=== PATIENT | female | born 1990 | race Caucasian/White ===

== ENCOUNTER 2020-06-05 00:29 | Emergency (ER) | payer OTHER ==
[2020-06-05] MEDS ORDERED: ONDANSETRON 4 MG/2 ML VIAL ONE (01:03)
[2020-06-05] MEDS ORDERED: MORPHINE 4 MG/ML SYR ONE (01:03)
[2020-06-05 01:31] LABS: Urine Blood 2+ (NEG); Urine Glucose NEGATIVE (NEG); Urine Protein TRACE (NEG); Urine Specific Gravity >1.030 (1.005-1.030)
[2020-06-05 01:39] LABS: Absolute Lymphocytes (CBC) 5.2 K/uL (0.7-4.9); Basophils % 0.5 % (0-1.3); Hematocrit 37.9 % (36.0-45.0); Lymphocytes % 51.9 % (15.3-44.8); MPV 9.1 fL (7.6-11.3)
[2020-06-05 01:57] LABS: ALT/SGPT 43 U/L (12-78); AST/SGOT 25 U/L (15-37); Albumin 3.7 g/dL (3.4-5.0); Alkaline Phosphatase 46 U/L (45-117); BUN Blood Urea Nitrogen 11 mg/dL (7-18); Bicarbonate 24 mmol/L (21-32); Bilirubin Direct < 0.1 mg/dL (0-0.2); Bilirubin Total 0.3 mg/dL (0.2-1.0); Glucose Level 119 mg/dL (74-106); Lipase 89 U/L (73-393); Potassium 3.7 mmol/L (3.5-5.1); Protein, Total 7.7 g/dL (6.4-8.2); Sodium Level 142 mmol/L (136-145)
--- NOTE | 2020-06-05 02:30 | EDPHYS ---
Physician Documentation [facility] Name: Kathryn Lainez Age: 29 yrs Sex: Female : 1990 Arrival Date: 06/05/2020 Time: 00:31 Bed 8 Private MD: ED Physician Nghia Hannah HPI: 06/05 01:00 This 29 yrs old Female presents to ER via Wheelchair with complaints of m Abdominal Pain. 01:00 The patient presents with abdominal pain in the right upper quadrant, right lower jmm quadrant. Onset: The symptoms/episode began/occurred acutely, 3 hour(s) ago. The symptoms do not radiate. Associated signs and symptoms: Pertinent positives: nausea, Pertinent negatives: diarrhea, dysuria, fever, vomiting. The symptoms are described as achy, sharp. Modifying factors: The symptoms are alleviated by nothing, the symptoms are aggravated by nothing. This is a 29 year old female with no chronic medical conditions that presents to the ED with complaints of right sided abdominal pain beginning approx 3 hours. Pain was acute onset. Denies vomiting or diarrhea. . 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 - Social history:: Smoking status: Patient reports the use of cigarette tobacco products, smokes one pack cigarettes per day. ROS: 01:00 Constitutional: Negative for fever, chills, and weight loss, Cardiovascular: Negative jmm for chest pain, palpitations, and edema, Respiratory: Negative for shortness of breath, cough, wheezing, and pleuritic chest pain. 01:00 Abdomen/GI: Positive for abdominal pain, nausea. 01:00 All other systems are negative. Exam: 01:00 Constitutional: This is a well developed, well nourished patient who is awake, alert, jmm and in no acute distress. Head/Face: atraumatic. Eyes: EOMI, no conjunctival erythema appreciated ENT: Moist Mucus Membranes Neck: Trachea midline, Supple Chest/axilla: Normal chest wall appearance and motion. Cardiovascular: Regular rate and rhythm. No edema appreciated Respiratory: Normal respirations, no respiratory distress appreciated 01:00 Back: Normal ROM Skin: General appearance color normal MS/ Extremity: Moves all extremities, no obvious deformities appreciated, no edema noted to the lower extremities Neuro: Awake and alert, normal gait Psych: Behavior is normal, Mood is normal, Patient is cooperative and pleasant 01:00 Abdomen/GI: Inspection: abdomen appears normal, Bowel sounds: normal, Palpation: soft, moderate abdominal tenderness, in the right upper quadrant and right lower quadrant. Vital Signs: 00:55 BP 151 / 97; Pulse 72; Resp 16; Temp 98.4(O); Pulse Ox 100% on R/A; Weight 58.97 kg lp1 (R); Height 5 ft. 4 in. (162.56 cm); Pain 8/10; 01:55 BP 107 / 54; Pulse 59; Resp 18; Pulse Ox 99% ; ea 02:31 BP 102 / 64; Pulse 60; Resp 18; Pulse Ox 98% on R/A; ea 00:55 Body Mass Index 22.31 (58.97 kg, 162.56 cm) lp1 MDM: 00:42 Patient medically screened. [facility] 02:27 Data reviewed: vital signs, nurses notes. Counseling: I had a detailed discussion with irving the patient and/or guardian regarding: the historical points, exam findings, and any diagnostic results supporting the discharge/admit diagnosis, lab results, radiology results, the need for outpatient follow up, to return to the emergency department if symptoms worsen or persist or if there are any questions or concerns that arise at home. ED course: Pain is relieved in the ED. Patient is advised to follow up with urology for reevaluation. Patient is otherwise given strict return precautions. patient understood and agrees with the plan of care. . 06/05 00:54 Order name: Basic Metabolic Panel; Complete Time: 02:00 [facility] 06/05 00:54 Order name: CBC with Diff; Complete Time: :46 [facility] 06/05 00:54 Order name: Hepatic Function; Complete Time: 02:00 [facility] 06/05 00:54 Order name: Lipase; Complete Time: 02:00 [facility] 06/05 01:25 Order name: Urine Dipstick--Ancillary (enter results); Complete Time: 01:46 [facility] 06/05 00:54 Order name: IV Saline Lock; Complete Time: 00:58 [facility] 06/05 00:54 Order name: Labs collected and sent; Complete Time: 00:58 [facility] 06/05 00:54 Order name: CT Abd/Pelvis - IV Contrast Only [facility] 06/05 01:25 Order name: Urine --Ancillary (enter results); Complete Time: 01:46 mw2 06/05 01:26 Order name: CREATININE WHOLE BLOOD [facility] 06/05 00:54 Order name: Urine Dipstick-Ancillary (obtain specimen); Complete Time: 01:19 [facility] 06/05 00:54 Order name: Urine Test (obtain specimen); Complete Time: 01:19 [facility] Administered Medications: 00:57 Drug: morphine 4 mg Route: IVP; Site: right antecubital; mg2 01:38 Follow up: Response: No adverse reaction; Pain is decreased ea 00:57 Drug: Zofran (Ondansetron) 4 mg Route: IVP; Site: right antecubital; mg2 01:38 Follow up: Response: No adverse reaction; Pain is decreased ea Disposition: 04:45 Co-signature as Attending Physician, Nghia Hannah MD. kika Disposition: 06/05/20 02:28 Discharged to Home. Impression: Calculus of kidney and ureter. - Condition is Stable. - Discharge Instructions: Kidney Stones, Dietary Guidelines to Help Prevent Kidney Stones. - Prescriptions for Zofran ODT 4 mg Oral tablet,disintegrating - place 1 tablet by TRANSLINGUAL route every 4-6 hours; 20 tablet. Cephalexin 500 mg Oral Capsule - take 1 capsule by ORAL route every 12 hours for 10 days; 20 capsule. - Medication Reconciliation Form, Thank You Letter, Antibiotic Education, Prescription Opioid Use form. - Follow up: Private Physician; When: 2 - 3 days; Reason: Recheck today's complaints, Continuance of care, Re-evaluation by your physician. Follow up: Dileep Alcantar MD; When: 2 - 3 days; Reason: Recheck today's complaints, Continuance of care, Re-evaluation by your physician. Signatures: Dispatcher [employer] EDMS Nghia Hannah MD MD pkl Mickail, Joel, PA PA [facility] Beryl Grady RN RN lp1 Megan Quinteros RN CARLY ea Damian Huitron RN RN mg2 Corrections: (The following items were deleted from the chart) 01:41 01:19 Stone Protocol+CT.RAD.BRZ ordered. [facility] EDMS 02:42 02:28 06/05/2020 02:28 Discharged to Home. Impression: Calculus of kidney and ureter. ea Condition is Stable. Forms are Medication Reconciliation Form, Thank You Letter, Antibiotic Education, Prescription Opioid Use. Follow up: Private Physician; When: 2 - 3 days; Reason: Recheck today's complaints, Continuance of care, Re-evaluation by your physician. Follow up: Dileep Alcantar; When: 2 - 3 days; Reason: Recheck today's complaints, Continuance of care, Re-evaluation by your physician. irving
--- NOTE | 2020-06-05 02:30 | ER ---
Nurse's Notes [facility] Name: Kathryn Lainez Age: 29 yrs Sex: Female : 1990 Arrival Date: 06/05/2020 Time: 00:31 Bed 8 Private MD: Diagnosis: Calculus of kidney and ureter Presentation: 06/05 00:55 Chief complaint: Patient states: Sudden onset of right sided abdominal pain that began lp1 about 3 hours ago; Denies vomiting, fever. Coronavirus screen: Proceed with normal triage. Ebola Screen: No symptoms or risks identified at this time. Initial Sepsis Screen: Does the patient meet any 2 criteria? No. Patient's initial sepsis screen is negative. Does the patient have a suspected source of infection? No. Patient's initial sepsis screen is negative. Risk Assessment: Do you want to hurt yourself or someone else? Patient reports no desire to harm self or others. Onset of symptoms was June 05, 2020. 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 - Social history:: Smoking status: Patient reports the use of cigarette tobacco products, smokes one pack cigarettes per day. Screenin:59 Abuse screen: Denies threats or abuse. Nutritional screening: No deficits noted. ea Tuberculosis screening: No symptoms or risk factors identified. Fall Risk IV access (20 points). Assessment: 01:00 General: Appears uncomfortable, Behavior is restless. Pain: Complains of pain in right ea lower quadrant. Neuro: Level of Consciousness is awake, alert, obeys commands, Oriented to person, place, time. Cardiovascular: Patient's skin is warm and dry. Respiratory: Airway is patent Respiratory effort is even, unlabored, Respiratory pattern is regular, symmetrical. GI: Abdomen is flat, Abdomen is tender to palpation in right lower quadrant. Derm: Skin is clammy, Skin is pale, Skin temperature is warm. 01:37 Reassessment: Patient and/or family updated on plan of care and expected duration. Pain ea level reassessed. Patient is alert, oriented x 3, equal unlabored respirations, skin warm/dry/pink. Reports pain has decreased. 02:41 Reassessment: Patient and/or family updated on plan of care and expected duration. Pain ea level reassessed. Patient is alert, oriented x 3, equal unlabored respirations, skin warm/dry/pink. Discharge instruction given to patient, verbalized the understanding of instruction. Pt left ED ambulatory tolerating well. Vital Signs: 00:55 BP 151 / 97; Pulse 72; Resp 16; Temp 98.4(O); Pulse Ox 100% on R/A; Weight 58.97 kg lp1 (R); Height 5 ft. 4 in. (162.56 cm); Pain 8/10; 01:55 BP 107 / 54; Pulse 59; Resp 18; Pulse Ox 99% ; ea 02:31 BP 102 / 64; Pulse 60; Resp 18; Pulse Ox 98% on R/A; ea 00:55 Body Mass Index 22.31 (58.97 kg, 162.56 cm) lp1 ED Course: 00:31 Patient arrived in ED. cf2 00:42 Rex Zepeda PA is PHCP. jmm 00:42 Nghia Hannah MD is Attending Physician. jmm 00:54 Megan Quinteros, CARLY is Primary Nurse. ea 00:56 Triage completed. lp1 00:57 Arm band placed on. lp1 01:00 Patient has correct armband on for positive identification. Placed in gown. Bed in low ea position. Call light in reach. 01:40 CT Abd/Pelvis - IV Contrast Only In Process Unspecified. EDMS 02:28 Dileep Alcantar MD is Referral Physician. jmm 02:32 No provider procedures requiring assistance completed. ea 02:41 IV discontinued, intact, bleeding controlled, No redness/swelling at site. Pressure ea dressing applied. Administered Medications: 00:57 Drug: morphine 4 mg Route: IVP; Site: right antecubital; mg2 01:38 Follow up: Response: No adverse reaction; Pain is decreased ea 00:57 Drug: Zofran (Ondansetron) 4 mg Route: IVP; Site: right antecubital; mg2 01:38 Follow up: Response: No adverse reaction; Pain is decreased gustavo Outcome: 02:28 Discharge ordered by MD. villatoro 02:41 Discharged to home ambulatory, with family. gustavo 02:41 Condition: stable 02:41 Discharge instructions given to patient, Instructed on discharge instructions, follow up and referral plans. medication usage, Demonstrated understanding of instructions, follow-up care, medications, Prescriptions given X 2. 02:42 Patient left the ED. ea Signatures: Dispatcher [employer] EDMS Rex Zepeda PA PA jmm Pena, Laura, RN RN lp1 Megan Quinteros RN RN Damian Serna RN RN [facility] 2
--- NOTE | 2020-06-05 13:27 | RAD REPORT ---
EXAM DESCRIPTION: CT ABDOMEN AND PELVIS WITH CONTRAST CLINICAL HISTORY: Right sided abdominal pain COMPARISON: None Available. TECHNIQUE: CT of the abdomen and pelvis performed following IV administration of iodinated contras t.. FINDINGS: Lung Bases: The visualized lung bases are clear. Bones: No destructive bone lesions identified. Abdomen: Liver: The liver has normal size and density. No intrahepatic biliary dilatation. Gallbladder: No calcified gallstones. Spleen, Pancreas, and Adrenal Glands: The spleen, pancreas, and adrenal glands are unremarkable. Kidneys: Moderate right hydroureter and hydronephrosis. No obstructing bilateral nephrolithiasis. N o ureteral calculi. No left-sided hydronephrosis. Vasculature: The aorta and IVC have normal caliber and position. The portal vein is patent. The pro ximal visceral and renal arteries are patent. Stomach: The stomach and duodenum have normal course. Other: No free intraperitoneal air. No free fluid or lymphadenopathy. Pelvis: Bladder: There is a 0.3 cm calculus in the urinary bladder. Bowel: No dilated loops of large or small bowel. Appendix: Normal appendix. Pelvis: Mildly prominent bilateral pelvic veins could be seen with pelvic congestion syndrome. Uterus is not enlarged. IMPRESSION: 1. Recently passed 0.3 cm calculus layering in the urinary bladder with residual moderat e right hydroureter and hydronephrosis. 2. Bilateral nonobstructing nephrolithiasis. This exam was performed according to our departmental dose-optimization program, which includes autom ated exposure control, adjustment of the mA and/or kV according to patient size and/or use of iterati ve reconstruction technique. Electronically signed by: Edi Urrutia 06/05/2020 2:17 AM CDT Due to temporary technical issues with the PACS/Fluency reporting system, reports are being signed by the in house radiologist without review as a courtesy to ensure prompt reporting. The interpreting r adiologist is fully responsible for the content of the report.
[2020-06-05 17:36] VITALS: TEMP 98.4
[2020-06-05 17:39] VITALS: BP 102/64; O2SAT 98
== END 2020-06-05 02:42 | disposition home or self-care (01) ==
LOC: ER 00:29
DX: N20.2 Calculus of kidney with calculus of ureter (principal); F17.210 Nicotine dependence, cigarettes, uncomplicated
CPT/HCPCS: 85025; 80048; 36415; 81025; 82565; 80076; 81003; 83690; 74177; 96375; 96374; 99283; Q9967; J2405

== ENCOUNTER 2020-07-20 07:23 | Emergency (ER) | payer OTHER ==
[2020-07-20] MEDS ORDERED: KETOROLAC 30 MG/ML INJ ONE (07:51)
[2020-07-20] MEDS ORDERED: NA CHLORIDE 0.9% 1,000 ML ONE (07:52)
[2020-07-20 07:58] LABS: Basophils % 0.3 % (0-1.3); Hematocrit 39.8 % (36.0-45.0); Lymphocytes % 25.8 % (15.3-44.8); RBC Red Blood Cell Count 4.52 M/uL (3.86-4.86)
[2020-07-20 08:05] LABS: Potassium 3.7 mmol/L (3.5-5.1)
[2020-07-20] MEDS ORDERED: PROMETHAZINE INJ 25 MG/ML AMP ONE (08:08)
[2020-07-20 08:10] LABS: Urine Blood 2+ (NEG); Urine Glucose NEGATIVE (NEG); Urine Protein NEGATIVE (NEG); Urine pH 5.5 (5.0-7.0)
[2020-07-20 08:12] LABS: Urine Bacteria >50 /HPF (<20); Urine Culture Reflex Order NOT NEEDED
[2020-07-20] MEDS ORDERED: MORPHINE 2 MG/ML SYR ONE (08:42)
[2020-07-20] MEDS ORDERED: CEFTRIAXONE/SWI 1gm 1 GM/10 ML SYR ONE (08:42)
--- NOTE | 2020-07-20 08:42 | RAD REPORT ---
EXAM DESCRIPTION: CT - Stone Protocol - 07/20/2020 8:23 am CLINICAL HISTORY: Flank pain. ABD PAIN COMPARISON: Abdomen Pelvis W Contrast dated 06/05/2020 TECHNIQUE: Axial images were obtained without oral or IV contrast. Lack of contrast limits solid org an and vascular assessment. The [id number] spans the entirety of the system partially obscuring uppermost abdomen and lung bases. Coronal reformatted images were obtained and reviewed. All CT scans are performed using dose optimization technique as appropriate and may include automated exposure control or mA/KV adjustment according to patient size. FINDINGS: The lower lung dorantes are clear. Imaged portions of the liver and spleen show no suspicious findings on non-contrast imaging. The panc reas and adrenal glands are normal. No pathologic lymphadenopathy in the abdomen or pelvis. 6 mm stone (640 HU) is present in the right UVJ resulting moderate right hydronephrosis. Additional b ilateral punctate caliceal calculi. No bowel obstruction, free air, free fluid or abscess. Normal appendix noted. No significant bony abnormality. IMPRESSION: 6 mm stone right UVJ resulting in moderate right hydronephrosis. Additional bilateral punctate caliceal renal calculi.
--- NOTE | 2020-07-20 09:10 | ER ---
Nurse's Notes [facility] Name: Kathryn Lainez Age: 29 yrs Sex: Female : 1990 Arrival Date: 07/20/2020 Time: 07:26 Bed 14 Private MD: Diagnosis: Hydronephrosis with renal and ureteral calculous obstruction;Urinary tract infection, site not specified Presentation: 07/20 07:30 Chief complaint: Patient states: right flank pain since last night, feels like a kidney iw stone. Coronavirus screen: At this time, the client does not indicate any symptoms associated with coronavirus-19. Ebola Screen: Patient negative for fever greater than or equal to 101.5 degrees Fahrenheit, and additional compatible Ebola Virus Disease symptoms Patient denies exposure to infectious person. Patient denies travel to an Ebola-affected area in the 21 days before illness onset. No symptoms or risks identified at this time. Initial Sepsis Screen: Does the patient meet any 2 criteria? No. Patient's initial sepsis screen is negative. Does the patient have a suspected source of infection? No. Patient's initial sepsis screen is negative. Risk Assessment: Do you want to hurt yourself or someone else? Patient reports no desire to harm self or others. Onset of symptoms was July 19, 2020. 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 - Social history:: Smoking status: Patient denies any tobacco usage or history of. Screenin:50 Abuse screen: Denies threats or abuse. Nutritional screening: No deficits noted. aa5 Tuberculosis screening: No symptoms or risk factors identified. Fall Risk None identified. Assessment: 07:45 General: Appears uncomfortable, Behavior is calm, cooperative. Pain: Complains of pain aa5 in right lower quadrant Pain radiates to right flank Pain currently is 10 out of 10 on a pain scale. Quality of pain is described as sharp, Is continuous. Neuro: Level of Consciousness is awake, alert, obeys commands, Oriented to person, place, time, situation. Cardiovascular: Patient's skin is warm and dry. Respiratory: Airway is patent Respiratory effort is even, unlabored, Respiratory pattern is regular, symmetrical. GI: Abdomen is flat, non-distended, Bowel sounds present X 4 quads. Abd is soft and non tender X 4 quads. Reports nausea. : No signs and/or symptoms were reported regarding the genitourinary system. EENT: No signs and/or symptoms were reported regarding the EENT system. Derm: Skin is pink, warm \T\ dry. Musculoskeletal: Range of motion: intact in all extremities. 08:00 Reassessment: Patient is alert, oriented x 3, equal unlabored respirations, skin aa5 warm/dry/pink. Patient states feeling better. Pt given warm blankets for comfort, notified of wait time for lab results. . General: Appears comfortable, Behavior is calm. Pain: Pain currently is 6 out of 10 on a pain scale. 08:10 Reassessment: Pt to CT via stretcher. . aa5 08:30 Reassessment: Patient is alert, oriented x 3, equal unlabored respirations, skin aa5 warm/dry/pink. Pt back from CT. Pt rates pain 6/10 on a pain scale, requesting pain medication, ELEMENTARY TUTOR was notified. Pt currently denies nausea. . 09:05 Reassessment: Patient is alert, oriented x 3, equal unlabored respirations, skin aa5 warm/dry/pink. Patient states feeling better. Patient states symptoms have improved. 10:00 Reassessment: Patient is alert, oriented x 3, equal unlabored respirations, skin aa5 warm/dry/pink. To bedside to d/c pt home, pt awaiting ride home. . Vital Signs: 07:30 BP 113 / 86; Pulse 92; Resp 16; Temp 99.0; Pulse Ox 98% on R/A; Weight 58.97 kg; Height iw 5 ft. 4 in. (162.56 cm); 07:59 BP 113 / 86; Pulse 87; Resp 16; Temp 98.6(O); Pulse Ox 98% on R/A; mh5 09:00 BP 115 / 78; Pulse 80; Resp 16 S; Pulse Ox 98% on R/A; aa5 07:30 Body Mass Index 22.31 (58.97 kg, 162.56 cm) iw ED Course: 07:26 Patient arrived in ED. ds1 07:31 Nithya Rowley [facility]C [facility]. snw 07:31 Michael Hadley MD is Attending Physician. snw 07:45 Triage completed. iw 07:46 Arm band placed on. iw 07:47 Inserted saline lock: 20 gauge in right antecubital area, using aseptic technique. iw Blood collected. 07:56 Radiology exam delayed due to test not completed at this time. bq 07:58 Patient has correct armband on for positive identification. Bed in low position. Call mh5 light in reach. Side rails up X 1. Warm blanket given. Pulse ox on. NIBP on. 07:58 Urine Culture Sent. mh5 07:58 Urine Microscopic Only Sent. mh5 07:58 Urine collected: clean catch specimen, cloudy. mh5 07:59 Lucia Downing, RN is Primary Nurse. aa5 08:21 CT completed. Patient tolerated procedure well. Patient moved back from CT. bq 08:23 CT Stone Protocol In Process Unspecified. EDMS 10:00 No provider procedures requiring assistance completed. IV discontinued, intact, aa5 bleeding controlled, No redness/swelling at site. Pressure dressing applied. Administered Medications: 07:50 Drug: NS 0.9% 1000 ml Route: IV; Rate: 1 bolus; Site: right antecubital; aa5 07:50 Drug: TORadol 30 mg {Note: UPT negative, completed by DAVID Sherman tech..} aa5 Route: IVP; Site: right antecubital; 08:10 Follow up: Response: No adverse reaction aa5 07:55 Drug: Phenergan 12.5 mg Route: IVP; Site: right antecubital; aa5 08:10 Follow up: Response: No adverse reaction aa5 08:32 Drug: morphine 2 mg Route: IVP; Site: right antecubital; aa5 08:40 Follow up: Response: No adverse reaction aa5 08:34 Drug: Rocephin 1 grams Route: IV; Rate: calculated rate; Site: right antecubital; aa5 09:09 Drug: Magnesium 400 mg Route: PO; rb1 10:00 Follow up: Response: No adverse reaction aa5 09:09 Drug: Flomax 0.4 mg Route: PO; rb1 10:00 Follow up: Response: No adverse reaction aa5 Outcome: 09:10 Discharge ordered by . sudheer 10:30 Discharged to home ambulatory, with family. aa5 10:30 Condition: improved 10:30 Discharge instructions given to patient, Instructed on discharge instructions, follow up and referral plans. medication usage, Demonstrated understanding of instructions, follow-up care, medications, Prescriptions given X 5 10:32 Patient left the ED. aa5 Addendum: 07/23/2020 07:56 Addendum: Culture Results: Positive urine culture. No further action required. Bacteria h b sensitive to prescribed antibiotic. Signatures: Dispatcher [employer] EDMS Nithya Rowley, ROAD [address]OSS[address] BOSS-Csnw Nelida Montoya Demi ds1 Precious Steel RN RN Lucia Downing RN RN 5 Misty Wilder RN RN [employer] [employer] Shira Lehman RN RN hb Martinez, [facility] Corrections: (The following items were deleted from the chart) 07/20 08:00 07:59 BP 113 / 86; Pulse 87bpm; Resp 16bpm; Pulse Ox 98% RA; [place] [id number] 08:24 07:46 PMHx: None; [facility] 08:24 07:45 Pain: Complains of pain in right lower quadrant Pain currently is 10 out of 10 on aa5 a pain scale. Quality of pain is described as sharp, Is continuous, aa5
--- NOTE | 2020-07-20 09:11 | EDPHYS ---
Physician Documentation [facility] Name: Kathryn Lainez Age: 29 yrs Sex: Female : 1990 Arrival Date: 07/20/2020 Time: 07:26 Bed 14 Private MD: ED Physician Michael Hadley HPI: 07/20 07:35 This 29 yrs old Female presents to ER via Unassigned with complaints of snw Possible Kidney Stone. 07:35 Onset: The symptoms/episode began/occurred suddenly, last night, and became worse this snw morning. Associated signs and symptoms: Pertinent positives: vomiting. Modifying factors: The patient symptoms are alleviated by nothing. The patient has experienced a previous episode, last month. The patient has not recently seen a physician. LMP 07/07/20. 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 - Social history:: Smoking status: Patient denies any tobacco usage or history of. ROS: 07:35 Constitutional: Negative for fever, chills, and weight loss, Eyes: Negative for injury, snw pain, redness, and discharge, ENT: Negative for injury, pain, and discharge, Neck: Negative for injury, pain, and swelling, Cardiovascular: Negative for chest pain, palpitations, and edema, Respiratory: Negative for shortness of breath, cough, wheezing, and pleuritic chest pain, Back: Negative for injury and pain, : Negative for injury, bleeding, discharge, and swelling, MS/Extremity: Negative for injury and deformity, Skin: Negative for injury, rash, and discoloration, Neuro: Negative for headache, weakness, numbness, tingling, and seizure, Psych: Negative for depression, anxiety, suicide ideation, homicidal ideation, and hallucinations. 07:35 Abdomen/GI: Positive for abdominal pain, nausea, vomiting, feels exactly like a previous kidney stone per report. Exam: 07:35 Constitutional: This is a well developed, well nourished patient who is awake, alert, snw and in no acute distress. Head/Face: Normocephalic, atraumatic. Eyes: Pupils equal round and reactive to light, extra-ocular motions intact. Lids and lashes normal. Conjunctiva and sclera are non-icteric and not injected. Cornea within normal limits. Periorbital areas with no swelling, redness, or edema. ENT: Nares patent. No nasal discharge, no septal abnormalities noted. Tympanic membranes are normal and external auditory canals are clear. Oropharynx with no redness, swelling, or masses, exudates, or evidence of obstruction, uvula midline. Mucous membranes moist. Neck: Trachea midline, no thyromegaly or masses palpated, and no cervical lymphadenopathy. Supple, full range of motion without nuchal rigidity, or vertebral point tenderness. No Meningismus. Chest/axilla: Normal chest wall appearance and motion. Nontender with no deformity. No lesions are appreciated. Cardiovascular: Regular rate and rhythm with a normal S1 and S2. No gallops, murmurs, or rubs. Normal PMI, no JVD. No pulse deficits. Respiratory: Lungs have equal breath sounds bilaterally, clear to auscultation and percussion. No rales, rhonchi or wheezes noted. No increased work of breathing, no retractions or nasal flaring. Back: No spinal tenderness. No costovertebral tenderness. Full range of motion. Skin: Warm, dry with normal turgor. Normal color with no rashes, no lesions, and no evidence of cellulitis. MS/ Extremity: Pulses equal, no cyanosis. Neurovascular intact. Full, normal range of motion. Neuro: Awake and alert, GCS 15, oriented to person, place, time, and situation. Cranial nerves II-XII grossly intact. Motor strength 5/5 in all extremities. Sensory grossly intact. Cerebellar exam normal. Normal gait. Psych: Awake, alert, with orientation to person, place and time. Behavior, mood, and affect are within normal limits. 07:35 Abdomen/GI: Inspection: bruising, Bowel sounds: normal, Palpation: moderate abdominal tenderness, in the right lower quadrant. Vital Signs: 07:30 BP 113 / 86; Pulse 92; Resp 16; Temp 99.0; Pulse Ox 98% on R/A; Weight 58.97 kg; Height iw 5 ft. 4 in. (162.56 cm); 07:59 BP 113 / 86; Pulse 87; Resp 16; Temp 98.6(O); Pulse Ox 98% on R/A; mh5 09:00 BP 115 / 78; Pulse 80; Resp 16 S; Pulse Ox 98% on R/A; aa5 07:30 Body Mass Index 22.31 (58.97 kg, 162.56 cm) iw MDM: 07:37 Patient medically screened. snw 09:09 Data reviewed: vital signs, nurses notes. Data interpreted: Pulse oximetry: on room air snw is 98 %. Interpretation: normal. Counseling: I had a detailed discussion with the patient and/or guardian regarding: the historical points, exam findings, and any diagnostic results supporting the discharge/admit diagnosis, the presence of at least one elevated blood pressure reading (>120/80) during this emergency department visit, lab results, radiology results, the need for outpatient follow up. Response to treatment: the patient's symptoms have markedly improved after treatment. Special discussion: Based on the patient's Hx, exam, and Dx evaluation, there is no indication for emergent surgery or inpatient Tx. It is understood by the patient/guardian that if the Sx's persist or worsen they need to return immediately for re-evaluation. Based on the history and exam findings, there is no indication for further emergent testing or inpatient evaluation. I discussed with the patient/guardian the need to see the primary care provider for further evaluation of the symptoms. I discussed with the patient/guardian the need to see the urologist for further evaluation of the symptoms. 07/20 07:32 Order name: Urine Culture snw 07/20 07:32 Order name: Urine Microscopic Only; Complete Time: 08:23 snw 07/20 07:35 Order name: CBC with Diff; Complete Time: 08:23 snw 07/20 07:35 Order name: Chem 7; Complete Time: 08:23 snw 07/20 07:59 Order name: Urine Dipstick--Ancillary (enter results); Complete Time: 08:23 eb 07/20 07:59 Order name: Urine --Ancillary (enter results); Complete Time: 08:23 eb 07/20 07:45 Order name: CT Stone Protocol; Complete Time: 08:54 snw 07/20 07:32 Order name: Urine Test (obtain specimen); Complete Time: 07:58 snw 07/20 07:32 Order name: Urine Dipstick-Ancillary (obtain specimen); Complete Time: 07:58 snw Administered Medications: 07:50 Drug: NS 0.9% 1000 ml Route: IV; Rate: 1 bolus; Site: right antecubital; aa5 07:50 Drug: TORadol 30 mg {Note: UPT negative, completed by DAVID Sherman tech..} aa5 Route: IVP; Site: right antecubital; 08:10 Follow up: Response: No adverse reaction aa5 07:55 Drug: Phenergan 12.5 mg Route: IVP; Site: right antecubital; aa5 08:10 Follow up: Response: No adverse reaction aa5 08:32 Drug: morphine 2 mg Route: IVP; Site: right antecubital; aa5 08:40 Follow up: Response: No adverse reaction aa5 08:34 Drug: Rocephin 1 grams Route: IV; Rate: calculated rate; Site: right antecubital; aa5 09:09 Drug: Magnesium 400 mg Route: PO; rb1 10:00 Follow up: Response: No adverse reaction aa5 09:09 Drug: Flomax 0.4 mg Route: PO; rb1 10:00 Follow up: Response: No adverse reaction aa5 Disposition: 11:04 Co-signature as Attending Physician, Michael Hadley MD I agree with the assessment and milagros plan of care. Disposition: 07/20/20 09:10 Discharged to Home. Impression: Hydronephrosis with renal and ureteral calculous obstruction, Urinary tract infection, site not specified. - Condition is Stable. - Discharge Instructions: Kidney Stones, Urinary Tract Infection, Adult, Hydronephrosis, Dietary Guidelines to Help Prevent Kidney Stones, Rehydration, Adult. - Prescriptions for Augmentin 875- 125 mg Oral Tablet - take 1 tablet by ORAL route every 12 hours for 10 days; 20 tablet. Tylenol- Codeine #3 300-30 mg Oral Tablet - take 2 tablet by ORAL route every 6 hours As needed; 30 tablet. Flomax 0.4 mg Oral Capsule, Sust. Release 24 hr - take 1 capsule by ORAL route once daily 1/2 hour following the same meal each day; 30 capsule. Diclofenac Sodium 75 mg Oral Tablet Sustained Release - take 1 tablet by ORAL route 2 times per day; 30 tablet. promethazine 25 mg Oral Tablet - take 1 tablet by ORAL route every 6 hours As needed; 20 tablet. - Medication Reconciliation Form, Thank You Letter, Antibiotic Education, Prescription Opioid Use form. - Follow up: Emergency Department; When: As needed; Reason: Worsening of condition. Follow up: Private Physician; When: 2 - 3 days; Reason: Recheck today's complaints, Continuance of care, Re-evaluation by your physician. Signatures: Dispatcher [employer] EDMS Michael Hadley MD MD cha Waters, Shelly, BAR TACKER SEWING MACHINE-C BAR TACKER SEWING MACHINE-Csnw Precious Steel, RN RN iw Lucia Downing RN RN aa5 Misty Wilder, RN RN rb1 Corrections: (The following items were deleted from the chart) 08:24 07:46 PMHx: None; iw aa5 10:32 09:10 07/20/2020 09:10 Discharged to Home. Impression: Hydronephrosis with renal and aa5 ureteral calculous obstruction; Urinary tract infection, site not specified. Condition is Stable. Forms are Medication Reconciliation Form, Thank You Letter, Antibiotic Education, Prescription Opioid Use. Follow up: Emergency Department; When: As needed; Reason: Worsening of condition. Follow up: Private Physician; When: 2 - 3 days; Reason: Recheck today's complaints, Continuance of care, Re-evaluation by your physician. snw
[2020-07-20] MEDS ORDERED: TAMSULOSIN 0.4 MG SR CAP ONE (09:16)
[2020-07-20] MEDS ORDERED: MAGNESIUM OXIDE 400 MG TAB ONE (09:17)
[2020-07-21 10:52] VITALS: BP 113/86; O2SAT 98
[2020-07-21 10:53] VITALS: TEMP 98.6
== END 2020-07-20 10:32 | disposition home or self-care (01) ==
LOC: ER 07:23
DX: N13.2 Hydronephrosis with renal and ureteral calculous obstruction (principal); N39.0 Urinary tract infection, site not specified; Z87.442 Personal history of urinary calculi; Z91.048 Other nonmedicinal substance allergy status
CPT/HCPCS: 87088; 85025; 87086; 80048; 36415; 81025; 87077; 87186; 76377; 74176; 96375; 96374; 99284; J2550; J2270; J0696; J7030; 81003; 81015

== ENCOUNTER 2021-07-28 12:20 | Emergency (ER) | payer OTHER ==
--- NOTE | 2021-07-28 13:40 | EDPHYS ---
Physician Documentation [facility] Name: Kathryn Lainez Age: 30 yrs Sex: Female : 1990 Arrival Date: 07/28/2021 Time: 12:22 Bed 10 Private MD: ED Physician Dilan Bueno HPI: 07/28 13:51 This 30 yrs old Female presents to ER via Ambulatory with complaints of Mouth kb Problem - rash. 13:51 The patient presents with pain, redness. The problem is located in the inside lower kb lip. The problem is located in the soft palate and inside lower lip. Onset: The symptoms/episode began/occurred 2 day(s) ago. Duration: The symptoms are continuous. Modifying factors: The symptoms are alleviated by nothing, the symptoms are aggravated by cold fluids, hot fluids. Associated signs and symptoms: Pertinent positives: pain, redness in area. Severity of symptoms: At their worst the symptoms were mild, moderate, in the emergency department the symptoms are unchanged. The patient has not experienced similar symptoms in the past. The patient has not recently seen a physician. 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 - Social history:: Smoking status: Patient denies any tobacco usage or history of. Patient uses alcohol, occasionally. ROS: 13:51 Constitutional: Negative for fever, chills, and weight loss. kb 13:51 Skin: Positive for of the soft palate and inner lower lip. 13:51 All other systems are negative. Exam: 13:53 Constitutional: This is a well developed, well nourished patient who is awake, alert, kb and in no acute distress. Head/Face: Normocephalic, atraumatic. Respiratory: Respirations even and unlabored. No increased work of breathing, no retractions or nasal flaring. Skin: Warm, dry with normal turgor. Normal color. MS/ Extremity: Pulses equal, no cyanosis. Neurovascular intact. Full, normal range of motion. Neuro: Awake and alert, GCS 15, oriented to person, place, time, and situation. Moves all extremities. Normal gait. Psych: Awake, alert, with orientation to person, place and time. Behavior, mood, and affect are within normal limits. 13:53 ENT: Mouth: Oral mucosa: noted to have obvious stomatitis. Vital Signs: 12:51 BP 107 / 74; Pulse 92; Resp 16; Temp 98.6(O); Pulse Ox 99% on R/A; Weight 65.77 kg (R); kg Height 5 ft. 4 in. (162.56 cm) (R); Pain 3/10; 12:51 Body Mass Index 24.89 (65.77 kg, 162.56 cm) kg MDM: 12:59 Patient medically screened. kb 13:51 Data reviewed: vital signs, nurses notes. Data interpreted: Pulse oximetry: on room air kb is 99 %. Interpretation: normal. Counseling: I had a detailed discussion with the patient and/or guardian regarding: the historical points, exam findings, and any diagnostic results supporting the discharge/admit diagnosis, the need for outpatient follow up, a family practitioner, to return to the emergency department if symptoms worsen or persist or if there are any questions or concerns that arise at home. Administered Medications: No medications were administered Disposition: 15:20 Co-signature as Attending Physician, Dilan Bueno MD I agree with the assessment and rn plan of care. PA/LIME SPREADER's history reviewed, patient interviewed, and examined. HPI: 30-year-old female with new onset intraoral rash that hurts and itches at the same time. Denies trauma. No new medications. Takes Prozac and buspirone. No fever. No trouble swallowing. My personal exam of patient reveals: Appearance of stomatitis on lower inner lip posterior pharynx and tongue. No exudate or desquamation. No stridor. I agree with assessment and care plan and confirm the diagnosis (es) above. Attestation: The patient's history, exam findings, diagnostics, and a summary of any interventions or procedures was reviewed in detail with Christy HESS. Disposition Summary: 07/28/21 13:39 Discharge Ordered Location: Home kb Condition: Stable kb Diagnosis - Other forms of stomatitis kb Followup: kb - With: Emergency Department - When: As needed - Reason: Worsening of condition Followup: kb - With: Private Physician - When: 2 - 3 days - Reason: Recheck today's complaints, Continuance of care, Re-evaluation by your physician Discharge Instructions: - Discharge Summary Sheet kb - Stomatitis, [id number] kb Forms: - Medication Reconciliation Form kb - Thank You Letter kb - Antibiotic Education kb - Prescription Opioid Use kb Prescriptions: - Augmentin 875-125 mg Oral Tablet - take 1 tablet by ORAL route every 12 hours for 10 days; 20 tablet; Refills: 0, kb Product Selection Permitted Signatures: Christy Alicia, DESHAWN COTA-Dilan Tanner MD MD rn Graham, Kristen, RN RN kg
--- NOTE | 2021-07-28 13:40 | ER ---
Nurse's Notes [facility] Name: Kathryn Lainez Age: 30 yrs Sex: Female : 1990 Arrival Date: 07/28/2021 Time: 12:22 Bed 10 Private MD: Diagnosis: Other forms of stomatitis Presentation: 07/28 12:51 Chief complaint: Patient states: Sore throat 4 days ago which has resolved. Three days kg ago red itchy, swollen rash started in mouth that has gotten worse. Coronavirus screen: Vaccine status: Patient reports being unvaccinated. Ebola Screen: Patient negative for fever greater than or equal to 101.5 degrees Fahrenheit, and additional compatible Ebola Virus Disease symptoms Patient denies exposure to infectious person. Patient denies travel to an Ebola-affected area in the 21 days before illness onset. Initial Sepsis Screen: Does the patient meet any 2 criteria? No. Patient's initial sepsis screen is negative. Does the patient have a suspected source of infection? No. Patient's initial sepsis screen is negative. Risk Assessment: Do you want to hurt yourself or someone else? Patient reports no desire to harm self or others. Onset of symptoms was July 25, 2021. 12:51 Method Of Arrival: Ambulatory kg 12:51 Acuity: AMANDA 4 kg Triage Assessment: 12:53 General: Appears in no apparent distress. Behavior is calm, cooperative, appropriate kg for age, quiet. Pain: Complains of pain in mouth Pain currently is 3 out of 10 on a pain scale. at worst was 3 out of 10 on a pain scale. level that patient reports is acceptable is 3 out of 10 on a pain scale. Quality of pain is described as burning, sensitive to cold, hot, and citrus. EENT: Lesions noted. Throat is reddened. INTRANET SUPPORT: 12:53 LMP 07/07/2021 kg Historical: - Allergies: 12:53 KNDA; kg - Home Meds: 12:53 Prozac Oral [Active]; bupropion HCl 300 mg Oral Tb24 1 tab once daily [Active]; kg - PMHx: 12:53 Kidney stones; depression; Anxiety; kg - PSHx: 12:53 section; Tonsillectomy; kg - Immunization history:: Adult Immunizations up to date, Client reports having NOT received the Covid vaccine. - Social history:: Smoking status: Patient denies any tobacco usage or history of. Patient uses alcohol, occasionally. Vital Signs: 12:51 BP 107 / 74; Pulse 92; Resp 16; Temp 98.6(O); Pulse Ox 99% on R/A; Weight 65.77 kg (R); kg Height 5 ft. 4 in. (162.56 cm) (R); Pain 3/10; 12:51 Body Mass Index 24.89 (65.77 kg, 162.56 cm) kg ED Course: 12:22 Patient arrived in ED. as 12:53 Triage completed. kg 12:53 Arm band placed on right wrist. kg 12:59 Christy Alicia F[facility]-C [facility]. kb 12:59 Dilan Bueno MD is Attending Physician. kb 13:51 Precious Steel, RN is Primary Nurse. iw 13:52 No provider procedures requiring assistance completed. Patient did not have IV access iw during this emergency room visit. Administered Medications: No medications were administered Outcome: 13:39 Discharge ordered by MD. kb 13:52 Discharged to home ambulatory. iw 13:52 Condition: improved 13:52 Discharge instructions given to patient, Prescriptions given X 2. 13:53 Patient left the ED. iw Signatures: Christy Alicia FNP-C FNP-Alis Toribio as Precious Steel, RN RN iw Justyna Rhodes, CARLY RN kg
[2021-07-28 14:28] VITALS: BP 107/74; TEMP 98.6; O2SAT 99
== END 2021-07-28 13:53 | disposition home or self-care (01) ==
LOC: ER 12:20
DX: K12.1 Other forms of stomatitis (principal); F32.9 Major depressive disorder, single episode, unspecified; F41.9 Anxiety disorder, unspecified
CPT/HCPCS: 99282